=== PATIENT | female | born 1930 | race Caucasian/White ===

== ENCOUNTER 2016-12-23 15:10 | Emergency (ER) | payer MEDICARE, OTHER ==
[~2016-12-23 15:10] MED LIST: AMLO10TA3 PO; CHOL200047 PO; HYDR25TA4 PO; LEVO88TA4 PO; LISI40TA PO; PENT400T PO; SIMV20TA4 PO; SPIR25TA3 PO
[2016-12-23 15:13] VITALS: BP 196/106; PULSE 67; RESP 20; O2SAT 93
--- NOTE | 2016-12-23 15:25 | ED.REPORT ---
HPI-General Illness Date of Service Dec 23, 2016 ED Provider: Julio Sunshine MD Pt is a Latvian speaking 86 year old female with a history of emphysema and HTN who presents to the ED via EMS with concerns for shortness of breath. She reports that she is no longer experiencing symptoms and is tearful asking to go home. She cannot/will not give a complete history, possibly secondary to patient 's age and language barrier, despite the use of an hide house supervisor. According to patient's , they were in the hospital for her 's cardiology appointment when she began to have a difficult time breathing and felt lightheaded. This lasted somewhere between 2 and 20 minutes, however difficult obtaining clear history. Unknown if there are any notable alleviating or exacerbating factors, but patient states that her symptoms have resolved. Pt reports that she was then brought to the ED for evaluation. She denies any associated chest pain, fever, chills, abdominal pain, or other symptoms at this time. Pt's son reports that she has had these symptoms in the past. And that she was at the doctor several days ago with concerns for her breathing. Her son reports that she gets these episodes when she is under stress, and has a rescue inhaler. Nursing Notes Stated Complaint: SOB Chief Complaint: Chest Pain Nursing Notes Reviewed: Yes Allergies: Coded Allergies: No Known Allergies (Verified Allergy, Unknown, 10/15/14) Scheduled Amlodipine (Amlodipine) 10 Mg Tablet 10 MG PO DAILY Cholecalciferol (Vitamin D3) (Vitamin D3) 2,000 Unit Capsule 2,000 UNIT PO DAILY Hydrochlorothiazide (Hydrochlorothiazide) 25 Mg Tablet 25 MG PO DAILY Levothyroxine (Levothyroxine) 88 Mcg Tablet 88 MCG PO DAILY Lisinopril (Lisinopril) 40 Mg Tablet 40 MG PO DAILY Pentoxifylline (Pentoxifylline) 400 Mg Tablet.er 400 MG PO BID Simvastatin (Simvastatin) 20 Mg Tablet 20 MG PO HS Spironolactone (Spironolactone) 25 Mg Tablet 25 MG PO DAILY General Time Seen by MD: 15:24 Chief Complaint Breathing problem Hx Obtained From: Patient, Spouse, Son, Gift Manager Unable to Obtain Hx: Uncooperative Arrived By: Walk-in Sudden in Onset?: Yes Onset Occurred: Just prior to arrival Symptom Duration: 31 - 45 minutes Severity: Current: No pain currently Severity: Maximum: No pain Similar Sx Previous: Yes Past Medical History Past Medical History PVD Emphysema Reports: Hyperlipidemia, Hypertension Past Surgical History Denies Family History Non-contributory Smoking History Former Smoker Social History Alcohol Use: Denies alcohol use Drug Use: Denies drug use Other Social History: Ambulatory Status Cane Review of Systems Full Review of Systems Constitutional: Denies: Chills, Fever, Malaise, Weakness - generalized Eyes: Denies: Visual loss bilateral Ears / Nose / Throat: Denies: Sore throat Respiratory: Reports: Shortness of breath, Wheezing, Denies: Non-productive cough Cardiovascular: Denies: Chest pain, Syncope GI: Denies: Abdominal pain, Constipation, Diarrhea, Nausea, Vomiting Female: Denies: Dysuria, Flank pain, Urinary frequency Musculoskeletal: Denies: Back pain, Neck pain Skin: Denies Rash Allergy / Immune: Denies: Itching Neurologic: Denies: Change LOC, Dizziness, Headache Psychiatric: Denies: Depression Complete sys rev & neg: except as marked. Physical Exam Nursing note and vitals reviewed. Constitutional: Well-developed, well-nourished elderly female. Not diaphoretic. Head: Normocephalic and atraumatic. Mouth/Throat: Oropharynx is clear and moist. No oropharyngeal exudate. Eyes: EOM are normal. Pupils are equal, round, and reactive to light. Neck: Supple, no tracheal deviation. Cardiovascular: Normal rate, regular rhythm. Equal and intact distal pulses throughout. Pulmonary/Chest: Expiratory wheezes throughout. No respiratory distress. Abdominal: Soft. No distension. There is no tenderness, rebound, or guarding. Bowel sounds present. Musculoskeletal: Range of motion grossly intact, moving all extremities. No edema or tenderness appreciated. Neurological: AOx3. Grossly nonfocal exam. Strength and sensation intact and equal to bilateral upper and lower extremities. Gait normal. Normal finger to nose. Skin: Warm and dry, no rashes or pallor appreciated. Psychiatric: Tearful, but appropriate mood and affect. Vital Signs Vital Signs Date Time Temp Pulse Resp B/P Pulse Ox O2 Delivery O2 Flow Rate FiO2 12/23/16 16:52 64 96 12/23/16 15:13 36.4 67 20 196/106 93 Initial VS: Reviewed Re-Eval/Medical Decision Med Decision/Clinical Course In summary, 86-year-old female presenting to the ED for evaluation of an episode of headedness and shortness of breath shortly prior to arrival. History is somewhat limited secondary to patient's cooperation/poor historian. She clearly states that she does not want to be in the emergency department, is alert and oriented, and is tearful, stating that she feels better now and does not want to be here. I explained that given her history and the description of why her brought her to the emergency department, the fact that her symptoms have resolved does not rule out a dangerous etiology for her presentation. She verbalized understanding of this and insisted that she did not want any further workup whatsoever. I attempted to convince her to stay for a basic workup, including EKG and laboratory work, but she refused. Her son was contacted and I discussed this with him as well. She is of sound mind and able to make her own decisions, and seems to understand that we may be missing something more serious. I explained to her that I would like her to call her doctor tomorrow to make a follow-up appointment to discuss today's episode and that if she were to change her mind to return to the ED immediately ; we would be happy to see her. Patient and family verbalized understanding and agreement, signed out against medical advice. Careful return precautions were discussed. Source of Hx: Old records Time of Eval: 16:31 Re-Evaluation/Progress Note: After consult with pt's son, it is communicated with the pt that we highly suggest gets labs and a basic exam. She elects to leave the ED against medical advise Counseled Regarding: Diagnosis, When/why to return to ED Discharge & Departure Primary Impression: Syncope Syncope type: unspecified Qualified Code: R55 - Syncope and collapse Additional Impressions: Dyspnea Dyspnea type: unspecified Qualified Code: R06.00 - Dyspnea, unspecified Hypertension Hypertension type: unspecified secondary hypertension Qualified Code: I15.9 - Secondary hypertension, unspecified Disposition: AGAINST MEDICAL ADVICE Discharge Condition All VS Reviewed: Yes Condition: Stable Additional Instructions: You have decided to leave the emergency department AGAINST MEDICAL ADVICE before the completion of our evaluation here in the emergency department. We discussed that despite the fact that you feel better right now, we cannot say for certain that you are not having something more serious, such as a stroke, heart attack, clot in your lungs, or another life threatening illness. We talked about the risks and benefits of leaving, and you maintain that you do not want any further workup here in the emergency department right now, even a limited one. Please return to the emergency department immediately if you change your mind. Also, I would like you to follow up with your regular doctor tomorrow. Please call them to make an appointment as soon as possible. Return to the ED immediately if you develop any new or worsening lightheadedness , fever, chills, chest pain, shortness of breath, or if there is anything else of concern to you. Referrals: Ender Robles MD (PCP) Chey Attestation Portions of this note were transcribed by Cheyenne Luna. I, Dr. Sunshine personally performed the history, physical exam and medical decision-making; I reviewed and confirmed the accuracy of the information in the transcribed note. Signed by: Chey Ashby, 12/23/2016 copies to: Ender Robles MD, William B MD Dec 23, 2016 15:25 MARISOL LUNA Dec 23, 2016 16:17
[2016-12-23 16:52] VITALS: PULSE 64; O2SAT 96
== END 2016-12-23 16:53 | disposition left against medical advice (07) ==
LOC: SED 15:10
DX: R55 Syncope and collapse (principal); R06.00 Dyspnea, unspecified; I15.9 Secondary hypertension, unspecified; R42 Dizziness and giddiness; E78.5 Hyperlipidemia, unspecified; Z87.891 Personal history of nicotine dependence; Z53.29 Procedure and treatment not carried out because of patient's decision for other reasons